=== PATIENT | male | born 1995 | race Caucasian/White ===

== ENCOUNTER 2021-05-07 10:22 | Emergency (ER) | payer BC, SELFPAY ==
[2021-05-07 10:39] VITALS: BP 113/69; PULSE 80; RESP 18; TEMP 36.2; O2SAT 97
--- NOTE | 2021-05-07 12:13 | ED.GENADULT ---
HPI - General Adult General Chief complaint: Unspecified Stated complaint: Request Hep C Blood Draw Time Seen by Provider: 05/07/21 11:55 Source: patient History of Present Illness HPI narrative: 26-year-old male presented to the emergency department for evaluation of hepatitis testing. Patient states that his ex-girlfriend did test positive for hep C and he is requesting testing. Patient states he did have exposure approximately 1 month ago. Patient denies any symptoms at this time. Related Data Home Medications Medication Instructions Recorded Confirmed No Home Medications 05/07/21 05/07/21 Allergies Allergy/AdvReac Type Severity Reaction Status Date / Time No Known Allergies Allergy Verified 05/07/21 12:07 Review of Systems Review of Systems: CONSTITUTIONAL: Denies fever, chills, or sweats. EYES: Denies visual changes, redness, or discharge. ENT: Denies rhinorrhea, congestion, sore throat, or otalgia. CARDIOVASCULAR: Denies chest pain, palpitations, or edema. RESPIRATORY: Denies cough or dyspnea. GASTROINTESTINAL: Denies abdominal pain, nausea, vomiting, or diarrhea. GENITOURINARY: Denies dysuria or hematuria. SKIN: Denies rash or itching. MUSCULOSKELETAL: Denies back pain, joint pain, or myalgia. NEUROLOGIC: Denies headache, numbness, or weakness. PSYCHIATRIC: Denies anxiety or depression. Exam Narrative: APPEARANCE: Well appearing, no pain, no distress, well-nourished. HEAD: normocephalic, atraumatic. EYES: PERRLA/EOMI, conjunctivae clear. NOSE: Normal no drainage NECK: Supple. No adenopathy, no masses. RESPIRATORY: Airway patent, respirations nonlabored. Clear to auscultation bilaterally, no rales, rhonchi, wheezing. CARDIOVASCULAR: Regular rate and rhythm without murmurs rubs or gallops. ABDOMINAL: Soft, nontender, nondistended, normal bowel sounds MUSCULOSKELETAL: Moves all extremities. Strength/ROM intact, No edema, No calf tenderness. SKIN: Warm, dry. Normal Color Course Course Emergency Course: Patient eloped from the ED prior to completing his medical workup. Vital Signs Vital signs: Vital Signs Temperature 97.2 F L 05/07/21 10:39 Pulse Rate 80 05/07/21 10:39 Respiratory Rate 18 05/07/21 10:39 Blood Pressure 113/69 05/07/21 10:39 Pulse Oximetry 97 05/07/21 10:39 Temperature 97.2 F L 05/07/21 10:39 Pulse Rate 80 05/07/21 10:39 Respiratory Rate 18 05/07/21 10:39 Blood Pressure 113/69 05/07/21 10:39 Pulse Oximetry 97 05/07/21 10:39 Medical Decision Making Vital Signs Vital Signs: Vital Signs Temperature 97.2 F L 05/07/21 10:39 Pulse Rate 80 05/07/21 10:39 Respiratory Rate 18 05/07/21 10:39 Blood Pressure 113/69 05/07/21 10:39 Pulse Oximetry 97 05/07/21 10:39 Temperature 97.2 F L 05/07/21 10:39 Pulse Rate 80 05/07/21 10:39 Respiratory Rate 18 05/07/21 10:39 Blood Pressure 113/69 05/07/21 10:39 Pulse Oximetry 97 05/07/21 10:39 Discharge Plan Discharge Clinical Impression: Exposure to STD Patient Disposition: Left Against Medical Advice Condition: Stable Prescriptions: No Action No Home Medications RF: 0 Follow-up/Referrals: PHYSICIAN,DIRECTOR BUSINESS INTELLIGENCE [Primary Care Provider] -
--- NOTE | 2021-05-07 13:00 | PC.NURSE ---
pt approached nurses desk and states he has to leave. pt ambulatory to waiting area.
== END 2021-05-07 13:11 | disposition left against medical advice (07) ==
PROVIDERS: Emergency Provider Emergency Medicine
DX: Z20.2 Contact with and (suspected) exposure to infections with a predominantly sexual mode of transmission (principal)
CPT/HCPCS: 99283